=== PATIENT | female | born 1995 | race Asian ===

== ENCOUNTER 2020-11-15 17:55 | Observation (INO) | payer SELFPAY ==
[2019-02-13 13:00] VITALS: BP 143/90
[2020-11-15 18:30] LABS: BILIRUBIN,URINE NEGATIVE (NEG); CLARITY,URINE CLEAR; COLOR,URINE YELLOW; NITRITE,URINE NEGATIVE (NEG); PROTEIN,URINE NEGATIVE (NEG-TRACE); UROBILINOGEN,URINE 0.2 mg/dL (0.2 mg/dL)
[2020-11-15] MEDS ORDERED: ONDANSETRON PF 4 MG/2 ML VIAL. IVP PRN (18:30)
[2020-11-15] MEDS ORDERED: ACETAMINOPHEN 325 MG TABLET. PO PRN (18:30)
[2020-11-15] MEDS ORDERED: IV RINGERS,LACTATED 1000ML 1,000 ML IV SCH (18:30)
[2020-11-15 18:50] LABS: BACTERIA,URINE FEW /HPF (0-FEW); RBC,URINE 0 /HPF (0-2)
[2020-11-15 19:14] LABS: AMPHETAMINE/METHAMPHETAMINE NEG (NEG); BARBITURATES NEG (NEG); BENZODIAZEPINES NEG (NEG); CANNABINOIDS NEG (NEG); COCAINE NEG (NEG); METHADONE NEG (NEG); OPIATES NEG (NEG); PHENCYCLIDINE NEG (NEG)
== END 2020-11-15 19:25 | disposition home or self-care (01) ==
LOC: 3 SO LND 17:55
PROVIDERS: ADMIT Obstetrics & Gynecology; ATTEND Obstetrics & Gynecology
DX: O46.93 Antepartum hemorrhage, unspecified, third trimester (principal); Z3A.38 38 weeks gestation of pregnancy; Z79.899 Other long term (current) drug therapy
CPT/HCPCS: 59025; 80307; 81001; G0378; G0379

== ENCOUNTER 2020-11-16 01:05 | Inpatient (IN) | payer SELFPAY ==
[2020-11-16] VITALS (7 sets, daily range): BP systolic 106–126; BP diastolic 65–80
[~2020-11-16] VITALS: Ht 162.6 cm; Wt 93.9 kg
[2020-11-16] MEDS ORDERED: IV RINGERS,LACTATED 1000ML 1,000 ML IV PRN (01:15)
[2020-11-16] MEDS ORDERED: LIDOCAINE 1% PF 30 ML VIAL. INJ PRN (01:30)
[2020-11-16] MEDS ORDERED: OXYTOCIN 30 UNIT/500 ML PREMIX 500 ML IV PRN ×3 (01:30→12:15)
[2020-11-16] MEDS ORDERED: ACETAMINOPHEN 325 MG TABLET. PO PRN ×2 (01:30→12:15)
[2020-11-16] MEDS ORDERED: TERBUTALINE 1 MG/ML VIAL. SQ PRN (01:30)
[2020-11-16] MEDS ORDERED: BUTORPHANOL 2 MG/ML VIAL. IVP PRN ×2 (01:30)
[2020-11-16] MEDS ORDERED: 0.9 % SODIUM CHLORIDE 10 ML DISP.SYRIN. IV PRN ×2 (01:30→12:15)
--- NOTE | 2020-11-16 01:41 | NUR ---
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 Denies need.
[2020-11-16] MEDS: IV RINGERS,LACTATED 1000ML 1,000 ML IV SCH ×2 (01:49→09:49)
[2020-11-16] MEDS ORDERED: PENICILLIN G K 5,000,000 UNIT in IV DEXTROSE 5% 100ML 100 ML IV ONE (02:00)
[2020-11-16 02:09] LABS: BASO % 0 % (0-3); EOS # 0.5 x10^3/uL (0.0-0.7); EOS % 7 % (0-3); HEMATOCRIT 32.1 % (36.0-47.0); HEMOGLOBIN 10.8 g/dL (12.0-15.5); LYMPH # 1.2 x10^3/uL (1.0-4.8); LYMPH % 15 % (24-48); MEAN CORPUSCULAR HEMOGLOBIN 30 pg (25-35); MEAN CORPUSCULAR HGB CONC 34 g/dL (31-37); MEAN CORPUSCULAR VOLUME 91 fL (79-100); MONO # 0.7 x10^3/uL (0.0-1.1); MONO % 8 % (0-9); NEUT # 5.5 x10^3/uL (1.8-7.7); NEUT % 69 % (31-73); PLATELET COUNT 261 x10^3/uL (140-400); RED BLOOD COUNT 3.55 x10^6/uL (3.50-5.40); RED CELL DISTRIBUTION WIDTH 12.4 % (11.5-14.5); WHITE BLOOD COUNT 7.9 x10^3/uL (4.0-11.0)
[2020-11-16] MEDS: PENICILLIN G K 2,500,000 UNIT in IV DEXTROSE 5% 50 ML IV SCH ×2 (05:35→10:13)
[2020-11-16] MEDS ORDERED: MAG HYDROX/ALUMINUM HYD/SIMETH 30 ML ORAL.SUSP PO PRN (12:15)
[2020-11-16] MEDS ORDERED: BENZOCAINE 20% TOPICAL AEROSOL SPRAY 57GM CAN. TP PRN (12:15)
[2020-11-16] MEDS ORDERED: MAGNESIUM HYDROXIDE 2,400 MG/30 ML ORAL.SUSP. PO PRN (12:15)
[2020-11-16] MEDS ORDERED: SIMETHICONE 80 MG TAB.CHEW PO PRN (12:15)
[2020-11-16] MEDS ORDERED: PHENYLEPH/MINERAL OIL/PETROLAT RECTAL OINTMENT TUBE. RC PRN (12:15)
[2020-11-16] MEDS ORDERED: TDaP (Adacel) per PROTOCOL. MC PRN (12:15)
[2020-11-16] MEDS ORDERED: diphenhydrAMINE HCL 25 MG CAPSULE PO PRN (12:15)
[2020-11-16] MEDS ORDERED: MMR per PROTOCOL. MC PRN (12:15)
[2020-11-16] MEDS ORDERED: HYDROCORTISONE 1% TOPICAL OINTMENT 30GM TUBE. TP PRN (12:15)
[2020-11-16] MEDS ORDERED: oxyCODONE/APAP 5/325 1 TAB TABLET PO PRN (12:15)
[2020-11-16] MEDS ORDERED: ZOLPIDEM 5 MG TABLET. PO PRN (12:15)
--- NOTE | 2020-11-16 12:20 | PDOC1 ---
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 The pt was seen in the office the day before. We discussed her first delivery. She had a C/S with her first . She was dx'ed with preeclampsia at 35wks. She had continued severe range BP's and LFTs so she underwent a C/S without a trial of labor. She would prefer to attempt a TOLAC if possible. Discussed mode of delivery and r/b/a of each. The pt was presented to L&D a few hours after the office visit. She made no cervical change so she was sent home. The pt returned to the hospital around midnight with rupture of membranes. She remained 1cm through most of the night. 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 She had progressed to 3 cm dilation around 0800. She was augmented with Pitocin at around 1000. PMH: Denies PSH: C/S x 1 Meds: PNV All: NKDA OBHx: 35wk C/S for preeclampsia SH: no tob, no EtOH FH: noncontributory Medications: Meds: Current Medications Medications (Trade) Dose Ordered Sig/Derick Route PRN Reason Start Time Stop Time Status Last Admin Dose Admin Ringer's Solution 1,000 ml @ 125 mls/hr Q8H IV 11/16/20 01:30 11/16/20 09:49 Butorphanol Tartrate (Stadol) 2 mg PRN Q1HR PRN IVP Severe labor pain 11/16/20 01:30 11/16/20 10:06 Oxytocin 500 ml @ 0 mls/hr CONT PRN IV SEE I/O RECORD 11/16/20 01:30 11/16/20 09:46 Penicillin G Potassium [id number] unit/Dextrose 100 ml @ 100 mls/hr 1X ONCE IV 11/16/20 02:00 11/16/20 02:59 DC 11/16/20 01:50 Penicillin G Potassium [id number] unit/Dextrose 50 ml @ 100 mls/hr Q4H IV 11/16/20 06:00 11/16/20 10:13 Methylergonovine Maleate (Methergine) 0.2 mg 1X ONCE IM 11/16/20 12:30 11/16/20 12:31 11/16/20 12:10 Allergies: Coded Allergies: No Known Drug Allergies (Unverified , 02/10/19) Physical Exam: Vital Signs: Vital Signs Date Time Temp Pulse Resp B/P (MAP) Pulse Ox O2 Delivery O2 Flow Rate FiO2 11/16/20 10:06 20 Room Air 11/16/20 02:35 99.0 87 118/67 (84) 99 99.0 PE: GENERAL: No apparent distress. Alert and oriented. HEENT: Head normocephalic, atraumatic. NECK: Supple LUNGS: Clear to auscultation. HEART: RRR, S1, S2 present, pulses intact ABDOMEN: Soft, positive bowel sounds. EXTREMITIES: No cyanosis or edema. NEUROLOGIC: Normal speech, normal tone PSYCHIATRIC: Normal affect, normal mood. SKIN: No ulceration. FHT: 130's +acels/no decels/mLTV [place]: 3 min SVE: 4-5/C/0 Labs: Laboratory Tests Test 11/16/20 01:51 11/16/20 01:53 SARS-CoV-2 Antigen (Rapid) Negative (NEGATIVE) White Blood Count 7.9 x10^3/uL (4.0-11.0) Red Blood Count 3.55 x10^6/uL (3.50-5.40) Hemoglobin 10.8 g/dL (12.0-15.5) L Hematocrit 32.1 % (36.0-47.0) L Mean Corpuscular Volume 91 fL (79-100) Mean Corpuscular Hemoglobin 30 pg (25-35) Mean Corpuscular Hemoglobin Concent 34 g/dL (31-37) Red Cell Distribution Width 12.4 % (11.5-14.5) Platelet Count 261 x10^3/uL (140-400) Neutrophils (%) (Auto) 69 % (31-73) Lymphocytes (%) (Auto) 15 % (24-48) L Monocytes (%) (Auto) 8 % (0-9) Eosinophils (%) (Auto) 7 % (0-3) H Basophils (%) (Auto) 0 % (0-3) Neutrophils # (Auto) 5.5 x10^3/uL (1.8-7.7) Lymphocytes # (Auto) 1.2 x10^3/uL (1.0-4.8) Monocytes # (Auto) 0.7 x10^3/uL (0.0-1.1) Eosinophils # (Auto) 0.5 x10^3/uL (0.0-0.7) Basophils # (Auto) 0.0 x10^3/uL (0.0-0.2) Treponema pallidum Antibody Nonreactive (Nonreactive) Laboratory Tests 11/16/20 01:53 Laboratory Tests 11/16/20 01:53 Assessment & Plan: A/P 25y @ 38.2 by 36wk 1.) SROM expectant management, will augment if does not progress 2.) Insufficient care - a total of 2 visits to date 3.) Late presentation to care - presented for first visit at 36wks 4.) Prev C/S x 1 - desires TOLAC 5.) H/o PTD - 35wks 2/2 preeclampsia 6.) H/o preeclampsia - BP's nml to date 7.) Rub NI 8.) Tor NI 9.) Elevated GTT - 1 of 4 values elevated in 3hr GTT 10.) Fetus cat I FHT 11.) GBS pending no risk factors 12.) TDAP VAUGHN ZAMUDIO MD Nov 16, 2020 12:20
[2020-11-16] MEDS ORDERED: METHYLERGONOVINE MALEATE 0.2 MG/ML VIAL. IM ONE (12:30)
--- NOTE | 2020-11-16 12:50 | PDOC ---
VAGINAL DELIVERY DATE DATE: 11/16/20 TIME: 12:48 TIME Patient delivered a viable male infant over intact perineum at 1143. Wt 6 lb 15.3 oz. Apgars 8/9. Placenta delivered spontaneously, intact with 3VC. No lacerations noted. Some slight steady bleeding noted, so Methergine given along with the standard 20 U of Pit given with IVF. EBL 400cc. WEIGHT Weight [ ] VAUGHN STEWARD MD Nov 16, 2020 12:49
[2020-11-16] MEDS: IBUPROFEN 400 MG TABLET. PO PRN (20:25)
--- NOTE | 2020-11-16 21:23 | NUR ---
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 Refused to use inclusion internship phone
[2020-11-17 00:05] VITALS: BP 98/60
[2020-11-17 04:19] VITALS: BP 98/58
[2020-11-17 08:04] LABS: HEMATOCRIT 27.2 % (36.0-47.0); HEMOGLOBIN 8.7 g/dL (12.0-15.5); RED BLOOD COUNT 2.96 x10^6/uL (3.50-5.40); RED CELL DISTRIBUTION WIDTH 12.9 % (11.5-14.5)
[2020-11-17 08:05] VITALS: BP 101/56
[2020-11-17] MEDS: IBUPROFEN 400 MG TABLET. PO PRN (08:19)
[2020-11-17] MEDS: DOCUSATE SODIUM 100 MG CAPSULE. PO PRN (08:19)
[2020-11-17] MEDS: FERROUS SULFATE 325 MG TABLET. PO SCH ×2 (08:19→17:00)
[2020-11-17] MEDS: PRENATAL MULTIVITAMIN TABLET. PO SCH (08:20)
[2020-11-17 13:45] VITALS: BP 102/63
--- NOTE | 2020-11-17 15:54 | PDOC ---
IMPORT CUSTOMS CLEARING AGENT PROGRESS NOTE Date of Service: DATE: 11/17/20 TIME: 15:53 Subjective: Pt with good pain control. Uzair PO. Voiding. Minimal lochia. The pt denies any f/c or SOA Objective: Vital Signs: Vital Signs Date Time Temp Pulse Resp B/P (MAP) Pulse Ox O2 Delivery O2 Flow Rate FiO2 11/16/20 10:06 20 Room Air 11/16/20 10:36 99 11/16/20 14:15 98.7 126 117/75 (89) 98.7 Vital Signs Date Time Temp Pulse Resp B/P (MAP) Pulse Ox O2 Delivery O2 Flow Rate FiO2 11/17/20 13:45 97.8 85 20 102/63 (76) 99 97.8 11/17/20 04:19 Room Air Labs: Laboratory Tests Test 11/17/20 07:45 White Blood Count 15.0 x10^3/uL (4.0-11.0) H Red Blood Count 2.96 x10^6/uL (3.50-5.40) L Hemoglobin 8.7 g/dL (12.0-15.5) L Hematocrit 27.2 % (36.0-47.0) L Mean Corpuscular Volume 92 fL (79-100) Mean Corpuscular Hemoglobin 29 pg (25-35) Mean Corpuscular Hemoglobin Concent 32 g/dL (31-37) Red Cell Distribution Width 12.9 % (11.5-14.5) Platelet Count 219 x10^3/uL (140-400) Laboratory Tests 11/17/20 07:45 Laboratory Tests 11/17/20 07:45 Physical Exam: GENERAL: No apparent distress. Alert and oriented. HEENT: Head normocephalic, atraumatic. NECK: Supple LUNGS: Clear to auscultation. HEART: RRR, S1, S2 present, pulses intact ABDOMEN: Soft, positive bowel sounds. EXTREMITIES: No cyanosis or edema. NEUROLOGIC: Normal speech, normal tone PSYCHIATRIC: Normal affect, normal mood. SKIN: No ulceration. FFNT below umb No C/C/E Assessment & Plan: A/P 25y PPD #1 s/p 1.) PP doing well 2.) Covid pos unaware and asx 3.) Insufficient care - a total of 2 visits to date 4.) Late presentation to care - presented for first visit at 36wks 5.) H/o preeclampsia - BP's nml to date 6.) Rub NI 7.) Tor NI 8.) Will offer TDAP prior to d/c 9.) Hgb 10.8 -> 8.7 10.) Cont PP care VAUGHN STEWARD MD Nov 17, 2020 15:54
[2020-11-17 18:35] VITALS: BP 102/65
[2020-11-17 20:20] VITALS: BP 115/56
[2020-11-18 06:38] VITALS: BP 120/75
[2020-11-18] MEDS: PRENATAL MULTIVITAMIN TABLET. PO SCH (08:21)
[2020-11-18] MEDS: FERROUS SULFATE 325 MG TABLET. PO SCH (08:21)
[2020-11-18] MEDS: DOCUSATE SODIUM 100 MG CAPSULE. PO PRN (08:21)
[2020-11-18] MEDS ORDERED: DIPH,PERTUSS(ACELL),TET VAC/PF 0.5 ML SYRINGE. VAX IM ONE (09:30)
[2020-11-18] MEDS ORDERED: MEASLES, MUMPS & RUBELLA VACC 0.5 ML VIAL. VAX SQ ONE (09:30)
--- NOTE | 2020-11-18 10:23 | PDOC ---
FACILITIES MAINTENANCE TECHNICIAN PROGRESS NOTE Date of Service: DATE: 11/18/20 TIME: 10:22 Subjective: Pt with good pain control. Uzair PO. Voiding. Minimal lochia. The pt denies any f/c or SOA Objective: Vital Signs: Vital Signs Date Time Temp Pulse Resp B/P (MAP) Pulse Ox O2 Delivery O2 Flow Rate FiO2 11/17/20 08:05 98.1 88 20 101/56 (71) 97 98.1 11/17/20 20:20 Room Air Vital Signs Date Time Temp Pulse Resp B/P (MAP) Pulse Ox O2 Delivery O2 Flow Rate FiO2 11/18/20 06:38 97.8 96 20 120/75 (90) 100 97.8 11/17/20 20:20 Room Air Physical Exam: GENERAL: No apparent distress. Alert and oriented. HEENT: Head normocephalic, atraumatic. NECK: Supple LUNGS: Clear to auscultation. HEART: RRR, S1, S2 present, pulses intact ABDOMEN: Soft, positive bowel sounds. EXTREMITIES: No cyanosis or edema. NEUROLOGIC: Normal speech, normal tone PSYCHIATRIC: Normal affect, normal mood. SKIN: No ulceration. FFNT below umb No C/C/E Assessment & Plan: A/P 25y PPD #2 s/p 1.) PP doing well 2.) Covid pos unaware and asx 3.) Insufficient care - a total of 2 visits to date 4.) Late presentation to care - presented for first visit at 36wks 5.) H/o preeclampsia - BP's nml to date 6.) Rub NI MMR today 7.) TDAP today 8.) Tor NI 9.) Hgb 10.8 -> 8.7 10.) D/C home VAUGHN STEWARD MD Nov 18, 2020 10:23
[2020-11-18] MEDS ORDERED: DOCU-109 PO (10:25)
[2020-11-18] MEDS ORDERED: IBUP-1060 PO (10:25)
[2020-11-18] MEDS ORDERED: FERR325T14 PO (10:25)
[2020-11-18 10:41] VITALS: BP 116/72
--- NOTE | 2020-11-18 11:29 | DS ---
DATE OF DISCHARGE: 11/18/2020 ADMISSION DIAGNOSES: 1. Intrauterine at 38 weeks and 2 days by a 36-week ultrasound. 2. Spontaneous rupture of membranes. 3. Insufficient care with a total of 2 visits. 4. Late presentation to care with presentation initiating at 36 weeks. 5. Previous section x 1, desires trial of labor. 6. History of delivery at 35 weeks secondary to preeclampsia. 7. History of preeclampsia. 8. Rubella nonimmune. 9. Varicella nonimmune. 10. Elevated glucose tolerance test with 1 of 4 values elevated with her 3-hour glucose tolerance test. 11. Group B Streptococcus pending with no risk factors. DISCHARGE DIAGNOSES: 1. Intrauterine at 38 weeks and 2 days by a 36-week ultrasound. 2. Spontaneous rupture of membranes. 3. Insufficient care with a total of 2 visits. 4. Late presentation to care with presentation initiating at 36 weeks. 5. Previous section x 1, desires trial of labor. 6. History of delivery at 35 weeks secondary to preeclampsia. 7. History of preeclampsia. 8. Rubella nonimmune. 9. Varicella nonimmune. 10. Elevated glucose tolerance test with 1 of 4 values elevated with her 3-hour glucose tolerance test. 11. Group B Streptococcus positive. 12. COVID positive. PROCEDURE: Vaginal delivery after section. BRIEF HOSPITAL COURSE: The patient is a 25-year-old 2, para 0-1-0-1, who presented to Labor and Delivery at 38 weeks and 2 days by 36-week ultrasound with leakage of fluid. The patient was seen in the office the day prior. The patient had come in after that visit with contractions. The patient made no cervical change, so she was sent home. The patient returned around midnight with leakage of fluid, so was admitted. Of note, the patient's first delivery was a section at 35 weeks. This was due to her having preeclampsia with severe range blood pressures and elevated LFTs. She underwent a without a trial of labor. In the office, we discussed the risks, benefits and alternatives of trial of labor after . The patient desired to proceed with an attempted vaginal delivery. When the patient arrived that morning, she was still 1 cm. The patient was allowed to latent labor and then around 7:00 a.m., her contractions picked up. The patient's cervical dilation progressed to 3. The patient was started on augmentation to assist with her delivery and ultimately around noon, the patient became complete and pushing was initiated. Of note, the patient's rapid COVID came back negative, but on day #1, the patient was noted to have a positive PCR for COVID. The patient was placed in isolation. The patient had no signs or symptoms of COVID. Denied any fevers or chills or shortness of breath and by day #2, the patient was meeting all discharge criteria and was subsequently discharged home. Of note, the patient's hemoglobin on admission was 10.8 and after delivery was found to be 8.7. DISCHARGE INSTRUCTIONS: The patient was told not to lift anything greater than 20 pounds, have pelvic rest for 6 weeks. CALL IF: The patient was to call if she had fevers, chills, nausea, vomiting, abdominal pain or any additional questions or concerns. FOLLOWUP APPOINTMENT: The patient is to follow up in 6 weeks' time at [facility] [place] for a visit. She was to call to make the appointment. DISCHARGE MEDICATIONS: The patient was given a prescription for Motrin 800 mg, 30 pills; Colace 100 mg, 30 pills and ferrous sulfate 325 mg, 30 pills. VAUGHN STEWARD MD DR: MAGALI/charli JOB#: [id number] / [id number]
--- NOTE | 2020-11-18 11:50 | NUR ---
Patient refused [place] boat[employer] for discharge instructions charo(family) translated. Discharge instructions given and verbalized to patient. Refused wheelchair. Pt ambulated accompanied by friend and RN. Baby was then placed in rear facing in middle seat of SUV
[2020-11-18 12:36] VITALS: BP 118/73
== END 2020-11-18 11:50 | disposition home or self-care (01) | DRG 805 ==
LOC: OBSVTOIN 01:05 → 3 SO LND 01:05
PROVIDERS: ADMIT Obstetrics & Gynecology; ATTEND Obstetrics & Gynecology
PROC: 10E0XZZ Delivery of Products of Conception, External Approach (ICD-10-PCS; principal; 2020-11-16)
DX: O42.92 Full-term premature rupture of membranes, unspecified as to length of time between rupture and onset of labor (principal); U07.1 COVID-19; Z37.0 Single live birth; O98.52 Other viral diseases complicating childbirth; Z3A.38 38 weeks gestation of pregnancy; Z78.9 Other specified health status; O34.211 Maternal care for low transverse scar from previous cesarean delivery
CPT/HCPCS: 36415; 85025; 85027; 86592; 86850; 86900; 86901; 86920; 87426; J0595; J2210; J2540; J2590; J7060; J7120; U0003; G0378